=== PATIENT | female | born 1995 | race Caucasian/White ===

== ENCOUNTER 2016-05-15 08:33 | Emergency (ER) | payer OTHER ==
[2016-05-15] MEDS ORDERED: IPRATROPIUM/ALBUTEROL 3 ML DEYVIAL ONE (08:57)
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
[2016-05-15] MEDS ORDERED: IPRATROPIUM/ALBUTEROL 3 ML DEYVIAL IH ONE (09:06)
[2016-05-15] MEDS ORDERED: predniSONE 20 MG TAB PO ONE (09:07)
[2016-05-15] MEDS ORDERED: ALBUTEROL 3 ML DEYVIAL IH ONE (09:07)
[2016-05-15 10:41] VITALS: BP 104/90; PULSE 68; RESP 18; TEMP 97.3; O2SAT 99
== END 2016-05-15 10:30 | disposition home or self-care (01) ==
DX: J45.901 Unspecified asthma with (acute) exacerbation (principal); Z87.891 Personal history of nicotine dependence

== ENCOUNTER 2016-09-06 19:09 | Emergency (ER) | payer OTHER ==
[2016-09-06 19:14] VITALS: TEMP 98.1
[2016-09-06] MEDS ORDERED: IBUPROFEN 600 MG TAB PO ONE (19:15)
[2016-09-06] MEDS ORDERED: ACETAMINOPHEN 500 MG TAB PO ONE (19:15)
[2016-09-06] MEDS ORDERED: HYDROCODONE/APAP 5/325 TAB ONE (19:20)
[2016-09-06] MEDS ORDERED: HYDROCODONE/APAP 5/325 TAB PO ONE (19:22)
[2016-09-06] MEDS ORDERED: HYDROmorphONE/DILAUDID 1 MG/ML SYR IVP ONE (19:34)
[2016-09-06] MEDS ORDERED: BACITRACIN ZINC 14.2 GM OINTTUBE TP ONE (19:45)
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
[2016-09-06] MEDS ORDERED: OXYCODONE/APAP 5/325MG PREPACK#4 BTL TAKEHOME ONE (20:59)
[2016-09-06 21:17] VITALS: BP 107/88; PULSE 55; RESP 16; O2SAT 98
== END 2016-09-06 21:17 | disposition home or self-care (01) ==
DX: T23.241A Burn of second degree of multiple right fingers (nail), including thumb, initial encounter (principal); J45.909 Unspecified asthma, uncomplicated; T31.0 Burns involving less than 10% of body surface; Z87.891 Personal history of nicotine dependence; X12.XXXA Contact with other hot fluids, initial encounter
CPT/HCPCS: 96374; J1170